=== PATIENT | male | born 1960 | race Caucasian/White ===

== ENCOUNTER 2017-08-02 14:59 | Inpatient (IN) | payer BC ==
[~2017-08-02] VITALS: Ht 177.8 cm; Wt 80.0 kg
[2017-08-02 15:01] VITALS: BP 118/68; PULSE 74; TEMP 97.9
[2017-08-02] MEDS ORDERED: PRILOTC (16:11)
[2017-08-02 19:58] LABS: BASO % 0.3 % (0.0-2.0); EOS % 0.2 % (0-4.0); GRAN % 87.4 % (42.2-75.2); HEMATOCRIT 41.1 % (42.0-52.0); HEMOGLOBIN 14.1 g/dl (13.5-18.0); LYMPH # 0.5 (1.2-3.4); LYMPH % 5.7 % (20.0-51.0); MEAN CELL VOLUME 97 fl (80.0-100.0); MEAN CORPUSCULAR HEMOGLOBIN 33 pg (27.0-31.0); MEAN CORPUSCULAR HGB CONC 34 g/dl (33.0-37.0); MEAN PLATELET VOLUME 9.7 fl (7.4-10.4); MONO # 0.6 (0.1-0.6); MONO % 6.1 % (1.7-9.3); PLATELET COUNT 117 K/mm3 (130-400); RED BLOOD COUNT 4.22 M/mm3 (4.20-5.60); WHITE BLOOD COUNT 9.1 K/mm3 (4.8-10.8)
[2017-08-02 20:10] LABS: ADJUSTED CALCIUM 8.9 mg/dL (8.4-10.2); ALBUMIN 3.8 gm/dL (3.5-5.0); BILIRUBIN,TOTAL 0.8 mg/dL (0.0-1.0); CALCIUM 8.7 mg/dL (8.4-10.2); CREATININE, serum 0.77 mg/dL (0.66-1.25); POTASSIUM 4.2 mmol/L (3.4-5.0); TOTAL PROTEIN 6.5 gm/dL (6.4-8.2)
[2017-08-02 21:47] VITALS: BP 126/63; PULSE 98; TEMP 98.5
[2017-08-03] VITALS (12 sets, daily range): BP systolic 105–125; BP diastolic 62–82; PULSE 61–75; TEMP 98.2–99.5
[2017-08-04 02:28] VITALS: BP 108/57; PULSE 68; TEMP 99
[2017-08-04 05:30] VITALS: BP 104/56; PULSE 61; TEMP 99
[2017-08-04 07:26] LABS: HEMOGLOBIN 12.1 g/dl (13.5-18.0)
[2017-08-04 14:00] VITALS: BP 131/73; PULSE 78; TEMP 98.2
[2017-08-04] MEDS ORDERED: NORCO 325 MG-7.1 TAB PO (14:25)
[2017-08-04] MEDS ORDERED: ZOFRAN 4MG T4 MG/TAB PO (14:27)
[2017-08-04] MEDS ORDERED: ROXICODONE 55 MG/TAB PO (14:27)
== END 2017-08-04 16:30 | disposition home or self-care (01) | DRG 493 ==
LOC: JCC 14:59
PROVIDERS: Nurse Practitioner; Orthopaedic Surgery
PROC: 0QSK04Z Reposition Left Fibula with Internal Fixation Device, Open Approach (ICD-10-PCS; principal; 2017-08-03 11:30)
PROC: 0QSH36Z Reposition Left Tibia with Intramedullary Internal Fixation Device, Percutaneous Approach (ICD-10-PCS; 2017-08-03 11:30)
DX: S82.832A Other fracture of upper and lower end of left fibula, initial encounter for closed fracture (principal); C92.01 Acute myeloblastic leukemia, in remission; S82.392A Other fracture of lower end of left tibia, initial encounter for closed fracture; W11.XXXA Fall on and from ladder, initial encounter; Z87.891 Personal history of nicotine dependence
CPT/HCPCS: C1713; C1776; J0690; J1100; J1170; J2250; J2270; J2405; J2550; J2704; J2765; J3010; J7120